=== PATIENT | female | born 1940 | race Caucasian/White ===

== ENCOUNTER → 2016-12-18 08:40 | Outpatient (CLI) | payer MEDICARE, BC ==
[2012-08-28 17:59] VITALS: BMI 25.1
== END | disposition home or self-care (01) ==
LOC: D.CT 08:40
DX: R41.82 Altered mental status, unspecified (principal)

== ENCOUNTER → 2017-03-24 08:41 | Outpatient (CLI) | payer MEDICARE, BC ==
[2012-08-28 17:59] VITALS: BMI 25.1
== END ==
LOC: D.MAMMO 08:41 → D.US 10:30 → D.MAMMO 14:30
DX: N64.59 Other signs and symptoms in breast (principal)

== ENCOUNTER → 2018-08-05 21:03 | Outpatient (CLI) | payer MEDICARE, OTHER ==
[2012-08-28 17:59] VITALS: BMI 25.1
== END | disposition home or self-care (01) ==
LOC: D.MAMMO 11:00
DX: Z12.31 Encounter for screening mammogram for malignant neoplasm of breast (principal)

== ENCOUNTER 2018-09-09 19:00 | Outpatient (CLI) | payer MEDICARE, OTHER ==
[2012-08-28 17:59] VITALS: BMI 25.1
== END 2018-09-09 23:59 | disposition home or self-care (01) ==
LOC: D.MAMMO 19:00
DX: R92.8 Other abnormal and inconclusive findings on diagnostic imaging of breast (principal)

== ENCOUNTER → 2019-06-08 09:11 | Outpatient (CLI) | payer MEDICARE, BC ==
[2012-08-28 17:59] VITALS: BMI 25.1
--- NOTE | 2019-06-15 13:38 | EC ---
PATIENT:GLORIA UGARTE DATE OF SERVICE: 06/08/19 SEX: F MEDICAL RECORD: [id number] DATE OF : 44 [facility] AGE OF PATIENT: 79 ADMISSION DATE: 06/08/19 REFERRING PHYSICIAN: INTERPRETING PHYSICIAN: GENESIS SANDERS MD ECHOCARDIOGRAM REPORT ECHO CHARGES 4 ECHO COMPLETE Date: 06/08/19 CLINICAL DIAGNOSIS: MR H/O A-[id number] ECHOCARDIOGRAPHIC MEASUREMENTS (adult normal given) AC root (d.<3.7cm) 2.9 cm LV Septum d (<1.2 cm> 1.1 cm Valve Excursion 1.8 cm LV Septum (systole) 1.5 cm Left Atria (s.<4.0cm> 4.9 cm LVPW d(<1.2cm) 1.1 cm RV (d.<2.3cm) 2.6 cm LVPW (sytole) 1.7 cm LV diastole(<5.6CM) 5.7 cm MV E-F(>70mm/sec) cm LV systole 3.8 cm LVOT Diameter 1.7 cm MV exc.(>10mm) cm Est.ejection fraction (50-75%) % DOPPLER: LVIT cm/sec A 80.0 cm/sec E 83.0 cm/sec LA cm/sec RVSP 45.0 mmHg LVOT 125 cm/sec AOP1/2T m/s Asc. 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 Sanders TAPE# PACS Pericardial Effusion N DATE OF SERVICE: FINDINGS: 1. Left ventricular chamber size is mildly dilated. Left ventricular systolic function is preserved at 55%. 2. Left atrium is enlarged at 4.9 cm. Right atrium and right ventricular chamber sizes are as well mildly dilated. 3. Valvular structures have normal structure and motion. 4. Doppler interrogation reveals mild aortic insufficiency, moderate mitral regurgitation, moderate tricuspid regurgitation, no other valvular insufficiency ECHOCARDIOGRAM REPORT [id number] GLORIA UGARTE or stenosis. Pulmonary systolic pressure is estimated at 45 mmHg. 5. No evidence of pericardial effusion or left ventricular thrombus. TRANSINT:[id number] Voice Confirmation ID: [id number] DOCUMENT ID: [id number] GENESIS SANDERS MD at 1338 CC: [id number] DICTATION DATE: 06/08/19 1737 FIELD OPERATIONS COORDINATOR: 06/08/19 2233 DEP CLI 06/08/19 [id number] [place] [address]
== END | disposition home or self-care (01) ==
LOC: D.HCCECHO 09:11 → D.HCCARDIO 09:30 → D.HCCECHO 09:30
PROVIDERS: ATTEND Internal Medicine Interventional Cardiology
DX: I08.8 Other rheumatic multiple valve diseases (principal)

== ENCOUNTER → 2019-09-28 09:00 | Outpatient (CLI) | payer MEDICARE, BC ==
[2012-08-28 17:59] VITALS: BMI 25.1
== END | disposition home or self-care (01) ==
LOC: D.RAD 09:00
PROVIDERS: ATTEND Internal Medicine Gastroenterology
DX: Z12.11 Encounter for screening for malignant neoplasm of colon (principal); K59.09 Other constipation